=== PATIENT | female | born 1965 | race Caucasian/White ===

== ENCOUNTER 2020-05-29 17:46 | Inpatient (IN) ==
[2020-05-29] MEDS ORDERED: IOPAMIDOL 100 ML BOTTLE IV ONE (17:47)
[2020-05-29] MEDS ORDERED: 0.9 % SODIUM CHLORIDE 1,000 ML IV ONE (18:21)
[2020-05-29] MEDS ORDERED: ONDANSETRON 4 MG/2 ML VIAL IV ONE (18:21)
--- NOTE | 2020-05-29 18:30 | Emergency Department Note ---
HPI General Chief complaint: Cold/Flu Symptoms Stated complaint: dizziness, flu Time Seen by Provider: 05/29/20 18:21 Mode of arrival: ambulatory Limitations: no limitations History of Present Illness HPI Narrative: Narrative: Patient is a 54-year-old female that comes into the emergency department today with complaint of fever, chills, cough, shortness of breath, nausea without vomiting, diarrhea of loose brown stool, body aches, fatigue, and slight sore throat. Patient reports that the symptoms began May 23, 2020. She reports that her mother who she lives with is positive with the coronavirus. Patient reports that her mother is recovering, but she feels that she has likely contracted the coronavirus as well. Her appetite has been decreased. She has been trying to drink plenty of fluids. She came to the emergency department today as she was feeling short of breath more. She has a slight pain in the center of her chest when she coughs. Patient reports that her cough is nonproductive. She has a history of diabetes and reports her blood sugars have been in the 150 range. She reports history of asthma which is been well controlled with occasional albuterol. Patient has taken acetaminophen for her fever, body aches, and sore throat. She reports that her last dose was around 11:00 today. Patient denies any abdominal pains, urinary frequency, urgency, or dysuria. Related Data Previous Rx's Medication Instructions Recorded carvedilol 6.25 mg PO BID #60 tab 09/24/19 Allergies Allergy/AdvReac Type Severity Reaction Status Date / Time hydrocodone Allergy Mild Other Verified 05/29/20 18:51 ondansetron [From Zofran] AdvReac Mild Vomiting Verified 05/29/20 18:52 Review of Systems ROS ROS Narrative: Narrative: Except as noted in the HPI, a 12 - system Review of Systems was found to be negative. Specifically: Constitutional: No chronic fatigue, unexplained weight gain, or weight loss. Eyes: No visual impairment, no pain, watering, discharge, or itching. ENT: No ear or sinus infections. No reoccurring nosebleeds, no chronic nasal congestion. No mouth lesions or dental pain. No dysphagia. Respiratory: No wheezing. See HPI for positives. CV: No cyanosis, palpitations, dizziness, or fainting. GI: No abdominal pain, reflux symptoms, or vomiting. See HPI for positives. Musculoskeletal: No weakness, no joint pain or limitations. Neurologic: No headache, weakness, numbness, dizziness, or seizures. Endocrine: No hot or cold intolerances, excessive sweating, excessive thirst, or frequent urination. Hematologic/lymphatic: No blood disorder. No swollen lymph nodes. Integumentary: No problem with rashes, eczema, changing of skin lesions. No nail abnormalities. Psychiatric: No depression, anxiety, or sleep disorder. [facility] [place] Narrative Patient History Narrative: Narrative: Medical/Surgical/Family History All Active Problems (Updated 05/29/20 @ 21:26 by MARYANN Best) Atypical chest pain (Acute) Costochondritis (Acute) Hypoxia (Acute) Social History Smoking Status: Never smoker Exam Narrative Narrative: Narrative: General Limitations: no limitations General appearance: alert, in no apparent distress and obese Head Head: atraumatic and normocephalic Eye Eye: Present normal appearance and PERRL; Absent scleral icterus ENT ENT: Present normal oropharynx, mucous membranes moist, normal external ear exam and nasal congestion (Very small amount of clear postnasal discharge.) Neck Neck: Present normal inspection, full ROM and trachea midline; Absent tenderness, meningismus, lymphadenopathy and thyromegaly Chest Chest: Present symmetric chest wall rise; Absent tenderness and rash Respiratory Respiratory: Present normal lung sounds bilaterally; Absent respiratory distress, rales/crackles, wheezes, stridor, accessory muscle use and prolonged expiratory phase Cardiovascular Cardiovascular: Present regular rate and normal rhythm; Absent systolic murmur and diastolic murmur Adbominal Abdominal: Present other (Abdomen is soft, obese without tenderness. Normoactive bowel tones x4 quadrants.) Extremities Extremities: Present normal inspection, full ROM and normal capillary refill; Absent tenderness, pedal edema, pretibial edema, calf tenderness, cyanosis and clubbing Back Back: Present normal inspection and full ROM Neurological Neurological: Present alert and oriented X3 Psychiatric Psychiatric: Present normal affect and normal mood Skin Skin: Present warm, dry and normal color Course Course Course Narrative: 1927 -patient's d-dimer is elevated at 0.54. I have ordered CT angio of chest. DuoNeb to be administered as patient does have some hypoxia and currently receiving 2 L of O2. 2119 -CTA chest preliminary report shows no pulmonary embolism there is pulmonary parenchymal findings compatible with or seen with coronavirus infection. Ambulatory trial with patient reveals the oxygen saturations 83 to 88% on room air. I did call and talk with Dr. Pabon today who will come down to the emergency department and see the patient for evaluation in regards to admission to [facility] for hypoxia. Vital Signs Vital signs: Vital Signs Temperature 98.8 F 05/29/20 17:47 Pulse Rate 74 05/29/20 17:47 Respiratory Rate 18 05/29/20 17:47 Blood Pressure 169/78 05/29/20 17:47 Pulse Oximetry (%) 92 05/29/20 17:47 Temperature 99.2 F H 05/29/20 20:01 Pulse Rate 73 05/29/20 22:17 Respiratory Rate 20 05/29/20 19:59 Blood Pressure 146/48 05/29/20 22:17 Pulse Oximetry (%) 92 05/29/20 22:17 MDM MDM Narrative Medical decision making narrative: Narrative: Patient hypoxic and not able to maintain oxygen saturations greater than 90% on room air. Her oxygen saturations had remained around 88% to 92% at rest and with ambulation 83 to 88% on room air. Chest CT angiogram did not show any sign of pulmonary embolism. Findings on the CT scan are consistent with likely findings that are seen with coronavirus infection. Patient has been exposed to her mother who apparently is a known positive case of the novel coronavirus. Patient was tested for the COVID-19 virus which is currently pending at this time. I did consult with hospitalist, Dr. Pabon who will admit patient to [facility] for observation. Lab Data Result diagrams: 05/29/20 18:30 05/29/20 18:30 Labs: Lab Results 05/29/20 05/29/20 05/29/20 Range/Units 18:25 18:25 18:30 WBC (4.50-11.00) K/mcL RBC (3.59-5.38) M/mcL Hgb (11.2-15.7) g/dL Hct (34.1-44.9) % MCV (80.0-100.0) fL MCH (26.0-34.0) pg MCHC (31.0-36.0) g/dL RDW (11.5-14.5) % Plt Count (140-440) K/mcL MPV (7.4-10.4) fL Gran % (38.0-78.0) % Lymph % (Auto) (15.5-49.0) % [place] % (Auto) (1.0-12.0) % Eos % (Auto) (0.0-7.0) % Baso % (Auto) (0.0-2.0) % Gran # (1.80-8.00) K/mcL Lymph # (Auto) (1.50-4.80) K/mcL [place] # (Auto) (0.10-0.90) K/mcL Eos # (Auto) (0.00-0.70) K/mcL Baso # (Auto) (0.00-0.30) K/mcL PT 12.6 (11.9-14.5) sec INR 0.9 (0.9-1.1) D-Dimer (0.00-0.40) ug/ml VBG Lactic Acid (0.5-2.0) mmol/L Sodium (133-145) mmol/L Potassium (3.3-5.1) mmol/L Chloride (96-108) mmol/L Carbon Dioxide (22-30) mmol/L Anion Gap (8-16) BUN (6-20) mg/dl Creatinine (0.6-1.1) mg/dl GFR Calculation Glucose (70-105) mg/dL Calcium (8.6-10.4) mg/dl Total Bilirubin (0.0-1.0) mg/dL AST (0-37) U/l ALT (0-40) U/l Alkaline Phosphatase (39-117) U/L Total Creatine Kinase 66 (24-170) IU/L Troponin T (0-0.03) ng/ml C-Reactive Protein (0.0-0.8) mg/dl Total Protein (5.9-8.4) gm/dL Albumin (3.2-5.2) gm/dL Globulin (2.2-3.7) gm/dL Albumin/Globulin Ratio (1.0-2.3) Procalcitonin 0.11 (<0.10) ng/mL 05/29/20 05/29/20 05/29/20 Range/Units 18:30 18:30 18:30 WBC 5.2 (4.50-11.00) K/mcL RBC 4.33 (3.59-5.38) M/mcL Hgb 13.5 (11.2-15.7) g/dL Hct 40.3 (34.1-44.9) % MCV 93.1 (80.0-100.0) fL MCH 31.2 (26.0-34.0) pg MCHC 33.5 (31.0-36.0) g/dL RDW 13.2 (11.5-14.5) % Plt Count 132 L (140-440) K/mcL MPV 11.1 H (7.4-10.4) fL Gran % 63.1 (38.0-78.0) % Lymph % (Auto) 29.2 (15.5-49.0) % [place] % (Auto) 7.3 (1.0-12.0) % Eos % (Auto) 0.2 (0.0-7.0) % Baso % (Auto) 0.2 (0.0-2.0) % Gran # 3.29 (1.80-8.00) K/mcL Lymph # (Auto) 1.52 (1.50-4.80) K/mcL [place] # (Auto) 0.38 (0.10-0.90) K/mcL Eos # (Auto) 0.01 (0.00-0.70) K/mcL Baso # (Auto) 0.01 (0.00-0.30) K/mcL PT (11.9-14.5) sec INR (0.9-1.1) D-Dimer 0.54 H (0.00-0.40) ug/ml VBG Lactic Acid (0.5-2.0) mmol/L Sodium 137 (133-145) mmol/L Potassium 4.9 (3.3-5.1) mmol/L Chloride 100 (96-108) mmol/L Carbon Dioxide 22 (22-30) mmol/L Anion Gap 15.0 (8-16) BUN 15 (6-20) mg/dl Creatinine 1.1 (0.6-1.1) mg/dl GFR Calculation 56 Glucose 167 H (70-105) mg/dL Calcium 9.8 (8.6-10.4) mg/dl Total Bilirubin 1.0 (0.0-1.0) mg/dL AST 61 H (0-37) U/l ALT 47 H (0-40) U/l Alkaline Phosphatase 157 H (39-117) U/L Total Creatine Kinase (24-170) IU/L Troponin T (0-0.03) ng/ml C-Reactive Protein 2.3 H (0.0-0.8) mg/dl Total Protein 6.9 (5.9-8.4) gm/dL Albumin 3.7 (3.2-5.2) gm/dL Globulin 3.2 (2.2-3.7) gm/dL Albumin/Globulin Ratio 1.2 (1.0-2.3) Procalcitonin (<0.10) ng/mL 05/29/20 05/29/20 Range/Units 18:30 18:30 WBC (4.50-11.00) K/mcL RBC (3.59-5.38) M/mcL Hgb (11.2-15.7) g/dL Hct (34.1-44.9) % MCV (80.0-100.0) fL MCH (26.0-34.0) pg MCHC (31.0-36.0) g/dL RDW (11.5-14.5) % Plt Count (140-440) K/mcL MPV (7.4-10.4) fL Gran % (38.0-78.0) % Lymph % (Auto) (15.5-49.0) % [place] % (Auto) (1.0-12.0) % Eos % (Auto) (0.0-7.0) % Baso % (Auto) (0.0-2.0) % Gran # (1.80-8.00) K/mcL Lymph # (Auto) (1.50-4.80) K/mcL [place] # (Auto) (0.10-0.90) K/mcL Eos # (Auto) (0.00-0.70) K/mcL Baso # (Auto) (0.00-0.30) K/mcL PT (11.9-14.5) sec INR (0.9-1.1) D-Dimer (0.00-0.40) ug/ml VBG Lactic Acid 1.1 (0.5-2.0) mmol/L Sodium (133-145) mmol/L Potassium (3.3-5.1) mmol/L Chloride (96-108) mmol/L Carbon Dioxide (22-30) mmol/L Anion Gap (8-16) BUN (6-20) mg/dl Creatinine (0.6-1.1) mg/dl GFR Calculation Glucose (70-105) mg/dL Calcium (8.6-10.4) mg/dl Total Bilirubin (0.0-1.0) mg/dL AST (0-37) U/l ALT (0-40) U/l Alkaline Phosphatase (39-117) U/L Total Creatine Kinase (24-170) IU/L Troponin T < 0.01 (0-0.03) ng/ml C-Reactive Protein (0.0-0.8) mg/dl Total Protein (5.9-8.4) gm/dL Albumin (3.2-5.2) gm/dL Globulin (2.2-3.7) gm/dL Albumin/Globulin Ratio (1.0-2.3) Procalcitonin (<0.10) ng/mL Discharge Plan Patient/Caregiver Discharge Instructions Pt seen by DROP CLIPPER/PA only: No Clinical Impression: Hypoxia Patient Disposition: Xfer As Outpt/Obs ([facility]) Condition: Fair
[2020-05-29] MEDS ORDERED: ACETAMINOPHEN 1,000 MG/100 ML BOTTLE IV ONE (18:49)
[2020-05-29 19:05] LABS: Basophils # (Auto) 0.01 K/mcL (0.00-0.30); Basophils % (Auto) 0.2 % (0.0-2.0); Eosinophils # (Auto) 0.01 K/mcL (0.00-0.70); Eosinophils % (Auto) 0.2 % (0.0-7.0); Granulocytes % (Auto) 63.1 % (38.0-78.0); Hematocrit 40.3 % (34.1-44.9); Hemoglobin 13.5 g/dL (11.2-15.7); Lymphocytes # (Auto) 1.52 K/mcL (1.50-4.80); Lymphocytes % (Auto) 29.2 % (15.5-49.0); Mean Cell Volume 93.1 fL (80.0-100.0); Mean Corpuscular HGB Conc 33.5 g/dL (31.0-36.0); Mean Platelet Volume 11.1 fL (7.4-10.4); Monocytes # (Auto) 0.38 K/mcL (0.10-0.90); Monocytes % (Auto) 7.3 % (1.0-12.0); RBC 4.33 M/mcL (3.59-5.38); Red Cell Distribution Width 13.2 % (11.5-14.5); WBC 5.2 K/mcL (4.50-11.00)
[2020-05-29 19:06] LABS: Platelet Count 132 K/mcL (140-440)
[2020-05-29] MEDS ORDERED: IPRATROPIUM/ALBUTEROL 3 ML AMPUL.NEB NEB ONE (19:27)
[2020-05-29 19:30] LABS: ALT/SGPT 47 U/l (0-40); AST/SGOT 61 U/l (0-37); Albumin 3.7 gm/dL (3.2-5.2); Albumin/Globulin Ratio 1.2 (1.0-2.3); Alkaline Phosphatase 157 U/L (39-117); Blood Urea Nitrogen 15 mg/dl (6-20); C-Reactive Protein 2.3 mg/dl (0.0-0.8); Calcium 9.8 mg/dl (8.6-10.4); Carbon Dioxide 22 mmol/L (22-30); Chloride 100 mmol/L (96-108); Globulin 3.2 gm/dL (2.2-3.7); Glomerular Filtration Rate 56; Glucose 167 mg/dL (70-105)
[2020-05-29] MEDS ORDERED: REMDESIVIR 200 MG PO ONE (21:38)
[2020-05-29] MEDS ORDERED: REMDESIVIR 200 MG in 0.9 % SODIUM CHLORIDE 250 ML IV ONE (22:00)
--- NOTE | 2020-05-29 22:08 | Internal Med History&Physical ---
HPI History of Present Illness Patient information: Note initiated : 05/29/20 at 9:58 pm Service Date, if different from initiated Date: [] Patient: Fiona Chinchilla a 54 y/o F admitted on for dizziness, flu. Chief Complaint: [] History of present illness: Ms. Chinchilla is a 54 year old F Presents to the ED with worsening shortness of breath and cough. Patient lives with her mother was diagnosed with COVID-19 on the . Patient started developing symptoms on the fourth described as myalgias weakness nausea no vomiting diarrhea shortness of breath cough, fatigue. His symptoms continue to worsen especially her cough. Her cough is dry but her shortness of breath worsened as her cough worsened point where she was so short of breath she felt he needed to come in the ED. In the ED she was saturating at 88% on room air. She was given a breathing treatment and later on ambulated on room air but dropped to the mid 80s. Patient with good sats on 2 L oxygen. Managing with infiltrates bilaterally. He has a history of hypertension diabetes asthma, and obesity. Mother is convalescing at home. Lab abnormalities include mild transaminitis. Unremarkable troponin. Mildly elevated C-reactive protein. Mildly elevated d-dimer. Low procalcitonin. Mild thrombocytopenia Review of Systems: denies headache/fever/chills/nausea/vomiting/chest or abdominal pain/cough/dyspnea/diarrhea. Otherwise see above. PFSH PFSH All Active Problems (Updated 05/29/20 @ 21:26 by MARYANN Best) Atypical chest pain (Acute) Costochondritis (Acute) Hypoxia (Acute) Social History (Updated 05/29/20 @ 22:03 by Enoch Pabon DO) smoking status: Never smoker additional history: Past medical history: Diabetes asthma hypertension obesity anxiety Past surgical history: Hysterectomy family: Father with prostate cancer Social history: Patient denies tobacco or alcohol lives with her mother and foot surgery MEDS/ALLERGIES Home Medications and Allergies Home Medications Medication Instructions Recorded Confirmed Type carvedilol 6.25 mg PO BID #60 tab 09/24/19 05/29/20 Rx Allergies Allergy/AdvReac Type Severity Reaction Status Date / Time hydrocodone Allergy Mild Other Verified 05/29/20 18:51 ondansetron [From Zofran] AdvReac Mild Vomiting Verified 05/29/20 18:52 EXAM Constitutional Vitals: Temp Pulse Resp BP Pulse Ox 99.2 F H 75 20 160/56 94 05/29/20 20:01 05/29/20 21:29 05/29/20 19:59 05/29/20 21:47 05/29/20 21:29 Exam: General: Alert, Awake, No acute Distress, obese Eyes/N/T: EOMI, PERRL, Head/Neck: neck supple, normocephalic atraumatic CV: RRR, No murmurs, normal s1/s2 Pulm: Clear b/l, no wheezing/rhonchi/rales Abd: soft, nontender, +BS x4 Ext: no clubbing/cyanosis/edema Neuro: Alert, no focal deficits, moves all extremities, CN 2-12 grossly intact, symmetrical strength b/l upper/lower, sensations intact b/l upper/lower Skin: warm/dry DATA Data Completed and Pending Labs: Labs from last 24 hours 05/29/20 05/29/20 05/29/20 18:46 18:30 18:30 WBC RBC Hgb Hct MCV MCH MCHC RDW Plt Count MPV Gran % Lymph % (Auto) [place] % (Auto) Eos % (Auto) Baso % (Auto) Gran # Lymph # (Auto) [place] # (Auto) Eos # (Auto) Baso # (Auto) PT INR D-Dimer VBG Lactic Acid 1.1 Sodium Potassium Chloride Carbon Dioxide Anion Gap BUN Creatinine GFR Calculation Glucose Calcium Total Bilirubin AST ALT Alkaline Phosphatase Total Creatine Kinase Troponin T < 0.01 C-Reactive Protein Total Protein Albumin Globulin Albumin/Globulin Ratio Procalcitonin SARS-CoV-2 (PCR) Pending 05/29/20 05/29/20 05/29/20 18:30 18:30 18:30 WBC 5.2 RBC 4.33 Hgb 13.5 Hct 40.3 MCV 93.1 MCH 31.2 MCHC 33.5 RDW 13.2 Plt Count 132 L MPV 11.1 H Gran % 63.1 Lymph % (Auto) 29.2 [place] % (Auto) 7.3 Eos % (Auto) 0.2 Baso % (Auto) 0.2 Gran # 3.29 Lymph # (Auto) 1.52 [place] # (Auto) 0.38 Eos # (Auto) 0.01 Baso # (Auto) 0.01 PT INR D-Dimer 0.54 H VBG Lactic Acid Sodium 137 Potassium 4.9 Chloride 100 Carbon Dioxide 22 Anion Gap 15.0 BUN 15 Creatinine 1.1 GFR Calculation 56 Glucose 167 H Calcium 9.8 Total Bilirubin 1.0 AST 61 H ALT 47 H Alkaline Phosphatase 157 H Total Creatine Kinase Troponin T C-Reactive Protein 2.3 H Total Protein 6.9 Albumin 3.7 Globulin 3.2 Albumin/Globulin Ratio 1.2 Procalcitonin SARS-CoV-2 (PCR) 05/29/20 05/29/20 05/29/20 18:30 18:25 18:25 WBC RBC Hgb Hct MCV MCH MCHC RDW Plt Count MPV Gran % Lymph % (Auto) [place] % (Auto) Eos % (Auto) Baso % (Auto) Gran # Lymph # (Auto) [place] # (Auto) Eos # (Auto) Baso # (Auto) PT Pending INR Pending D-Dimer VBG Lactic Acid Sodium Potassium Chloride Carbon Dioxide Anion Gap BUN Creatinine GFR Calculation Glucose Calcium Total Bilirubin AST ALT Alkaline Phosphatase Total Creatine Kinase Pending Troponin T C-Reactive Protein Total Protein Albumin Globulin Albumin/Globulin Ratio Procalcitonin 0.11 SARS-CoV-2 (PCR) A/P Narrative A/P Narrative: A: *COVID-19 highly suspected: in-house family member positive on , pt symptoms started 05/27. -viral prodrome including GI symptoms -b/l infiltrates on imaging, procalcitonin low and no leukocytosis, -Febrile *Acute hypoxic respiratory failure: 2/2 above *HTN: On BB/ARB *DM: *Obesity: *h/o Asthma: *Generalized anxiety disorder: * P: -Remdesivir & low-dose dexamethasone -supp o2 -MDI prn -Continuous pulse ox -Clarify and update home medication list - -ppx: Lovenox Full code Time Spent With Patient Time: Total time spent is greater than 50% in coordination of care (as documented) at patient's floor/unit and/or counseling patient:
[2020-05-29 22:37] LABS: INR 0.9 (0.9-1.1); Prothrombin Time 12.6 sec (11.9-14.5)
[2020-05-29] MEDS ORDERED: BENZONATATE 100 MG CAPSULE PO PRN (22:50)
[2020-05-29] MEDS ORDERED: SENNOSIDES 1 TABLET PO PRN (22:50)
[2020-05-29] MEDS ORDERED: DEXTROSE 50% 50 ML VIAL IV PRN (22:50)
[2020-05-29] MEDS ORDERED: ONDANSETRON 4 MG/2 ML VIAL IV PRN (22:50)
[2020-05-29] MEDS ORDERED: POLYETHYLENE GLYCOL 3350 17 GM PACKET PO PRN (22:50)
[2020-05-29] MEDS ORDERED: DEXTROSE 31 GM ORAL.SUSP PO PRN (22:50)
[2020-05-29] MEDS ORDERED: POTASSIUM CHLORIDE 20 MEQ TABLET PO PRN ×2 (22:50)
[2020-05-29] MEDS ORDERED: MAGNESIUM SULFATE 2 GM/50 ML BAG IV PRN (22:50)
[2020-05-29] MEDS ORDERED: POTASSIUM CHLORIDE 40 MEQ in DEXTROSE 5% IN WATER 500 ML IV PRN (22:50)
[2020-05-29] MEDS ORDERED: ACETAMINOPHEN 325 MG TABLET PO PRN (22:50)
[2020-05-29] MEDS: DEXAMETHASONE 4 MG TABLET PO SCH (23:13)
[2020-05-29] MEDS: 0.9 % SODIUM CHLORIDE 10 ML SYRINGE IV SCH (23:14)
[2020-05-29] MEDS ORDERED: INSULIN LISPRO 1 UNIT/0.01 ML UNIT SQ ONE (23:50)
--- NOTE | 2020-05-30 05:59 | XRay Report ---
CLINICAL INFORMATION: SOB COMPARISON: 09/24/2019 FINDINGS: The heart is borderline enlarged, but unchanged. Mediastinum and pulmonary vessels are normal. Minor bibasilar atelectasis noted. No alexis infiltrates or effusions. IMPRESSION: Borderline stable cardiomegaly and minor bibasilar atelectasis. Interpreted and Authenticated by: Nate Shelton 05/30/20
--- NOTE | 2020-05-30 06:47 | Cat Scan Report ---
CLINICAL INFORMATION: Dyspnea and elevated d-dimer COMPARISON: None. TECHNIQUE: 80ml of Isovue-370 were injected intravenously. Using SmartPrep to maximize pulmonary artery opacification, .625mm helical slices were obtained from the lung apices through the lung bases. Following reconstruction, 2.5 mm sagittal, coronal, and axial reformations were processed. The exam was reviewed at mediastinal, lung, and bone windows. The exam was performed using radiation dose optimization techniques including, but not limited to, automated exposure control, adjustment of the mA and/or kV according to patient size and use of iterative reconstruction technique. FINDINGS: Mediastinal windows show the pulmonary arteries are well-opacified and normal in diameter. No evidence of embolus. The thoracic aorta also normal in diameter without appreciable atherosclerotic plaque. The heart is normal in size configuration. No plaque appreciated in the visualized coronary arteries. A few borderline enlarged lymph nodes present in the AP window left hilum and left lower paratracheal region. These are less than a in number ranging up to 16 mm. There are almost certainly benign reactive lymph nodes. The esophagus is grossly normal. Pulmonary parenchymal windows show scattered moderate sized groundglass infiltrates, generally in a peribronchial distribution, throughout both upper right middle and lower lobes. Infiltrates are slightly larger and more numerous in the upper lobes. There are no effusions. Bones and soft tissues are normal. Images of the superior abdomen show marked fatty infiltration the liver IMPRESSION: 1. No evidence of pulmonary embolus. 2. Multifocal moderate groundglass infiltrates throughout both lungs. In the acute setting, the differential diagnosis includes infection including, but not limited to, Covid pneumonia, atypical ARDS and hypersensitivity pneumonitis. 3. Marked fatty change within the liver. Please correlate with LFTs. In the absence of hepatitis virus infection and known hepatotoxins, such as alcohol, BROOKS should be excluded Interpreted and Authenticated by: Nate Shelton 05/30/20
[2020-05-30 07:04] LABS: Creatine Kinase 183 IU/L (24-170)
[2020-05-30 08:38] LABS: Hematocrit 39.8 % (34.1-44.9); Hemoglobin 13.2 g/dL (11.2-15.7); Mean Cell Volume 93.6 fL (80.0-100.0); Mean Corpuscular HGB Conc 33.2 g/dL (31.0-36.0); Mean Platelet Volume 11.3 fL (7.4-10.4); RBC 4.25 M/mcL (3.59-5.38); Red Cell Distribution Width 13.3 % (11.5-14.5); WBC 4.9 K/mcL (4.50-11.00)
[2020-05-30 08:40] LABS: Platelet Count 131 K/mcL (140-440)
[2020-05-30 08:48] LABS: ALT/SGPT 43 U/l (0-40); AST/SGOT 54 U/l (0-37); Albumin 3.7 gm/dL (3.2-5.2); Albumin/Globulin Ratio 1.2 (1.0-2.3); Alkaline Phosphatase 147 U/L (39-117); Bilirubin,Direct 0.2 mg/dL (0.0-0.3); Bilirubin,Total 0.8 mg/dL (0.0-1.0); Blood Urea Nitrogen 17 mg/dl (6-20); C-Reactive Protein 3.6 mg/dl (0.0-0.8); Calcium 9.3 mg/dl (8.6-10.4); Carbon Dioxide 20 mmol/L (22-30); Chloride 102 mmol/L (96-108); Globulin 3.2 gm/dL (2.2-3.7); Glomerular Filtration Rate 56; Glucose 352 mg/dL (70-105); Lactate Dehydrogenase 279 U/L (94-250); Triglycerides 155 mg/dl (<150); Uric Acid 7.5 mg/dL (2.5-8.0)
[2020-05-30 08:49] LABS: Phosphorous 2.2 mg/dL (2.7-4.5)
--- NOTE | 2020-05-30 08:51 | Internal Med Progress Note ---
SUBJECTIVE Subjective Patient information: Note initiated : 05/30/20 at 8:48 am Service Date, if different from initiated Date: [] Patient: Fiona Chinchilla a 54 y/o F admitted on 05/29/20 for dizziness, flu. Chief Complaint: [] Interval history: History of present illness: Ms. Chinchilla is a 54 year old F Presents to the ED with worsening shortness of breath and cough. Patient lives with her mother was diagnosed with COVID-19 on the . Patient started developing symptoms on the fourth described as myalgias weakness nausea no vomiting diarrhea shortness of breath cough, fatigue. His symptoms continue to worsen especially her cough. Her cough is dry but her shortness of breath worsened as her cough worsened point where she was so short of breath she felt he needed to come in the ED. In the ED she was saturating at 88% on room air. She was given a breathing treatment and later on ambulated on room air but dropped to the mid 80s. Patient with good sats on 2 L oxygen. Managing with infiltrates bilaterally. He has a history of hypertension diabetes asthma, and obesity. Mother is convalescing at home. Lab abnormalities include mild transaminitis. Unremarkable troponin. Mildly elevated C-reactive protein. Mildly elevated d-dimer. Low procalcitonin. Mild thrombocytopenia / Patient feeling better today. Coughing less and shortness of breath improving. Still on 2 L nasal cannula and will decrease to 1 L and see if she does. Review of Systems: denies headache/fever/chills/nausea/vomiting/chest or abdominal pain/diarrhea. Otherwise see above. Constitutional Vitals: Vital Signs Temp Pulse Resp BP Pulse Ox 99.1 F H 84 22 145/74 92 05/30/20 06:52 05/30/20 06:52 05/30/20 06:52 05/30/20 06:52 05/30/20 06:52 Period Temp Pulse Resp BP Sys/Rangel Pulse Ox Last 24 Hr 98.8 F-103.1 F 68-84 16-24 129-197/48-95 91-100 Intake and Output 05/29/20 05/30/20 05/30/20 21:59 05:59 13:59 Intake Total 1100 250 Output Total 975 650 Balance 1100 -725 -650 Weight 138.346 kg 127.55 kg Intake & Output: Intake & Output 05/29/20 05/30/20 05/30/20 21:59 05:59 13:59 Intake Total 1100 250 Output Total 975 650 Balance 1100 -725 -650 Weight 138.346 kg 127.55 kg Intake: IV 1100 250 Sodium Chloride 0.9% 1,000 ml @ 1000 Wide Open IV BOLUS ONE Rx#: [id number] Remdesivir 200 mg In Sodium 250 Chloride 0.9% 250 ml @ 500 mls/ hr IV ONCE ONE Rx#:[id number] Oral 0 Output: Void Amount 975 650 Other: Urine Color Bright Yellow Exam: General: Alert, Awake, No acute Distress, obese Eyes/N/T: EOMI, Head/Neck: neck supple, CV: RRR, No murmurs, Pulm: Clear b/l, no wheezing/rhonchi/rales Abd: soft, nontender, +BS x4 Ext: no clubbing/cyanosis/edema Neuro: Alert, no focal deficits, moves all extremities, Skin: warm/dry OBJ DATA Labs CBC & Chem 7: 05/30/20 05:38 05/30/20 05:38 Labs: Abnormal Lab Results 05/30/20 05/30/20 05/29/20 05:38 05:38 18:30 Plt Count 131 L MPV 11.3 H D-Dimer Glucose 167 H Ferritin AST 61 H ALT 47 H Alkaline Phosphatase 157 H Total Creatine Kinase 183 H C-Reactive Protein 2.3 H 05/29/20 05/29/20 05/29/20 18:30 18:30 18:25 Plt Count 132 L MPV 11.1 H D-Dimer 0.54 H Glucose Ferritin 487.9 H AST ALT Alkaline Phosphatase Total Creatine Kinase C-Reactive Protein Meds: Medications Acetaminophen (Tylenol) 650 mg PO Q6HP PRN PRN Reason: PAIN/FEVER > 101 Albuterol/Ipratropium (Combivent) 2 puff INH QID [facility] Benzonatate (Tessalon) 200 mg PO TIDP PRN PRN Reason: Cough Last Admin: 05/30/20 02:37 Dose: 200 mg Documented by: Carvedilol (Coreg) 6.25 mg PO BIDCC [facility] Dexamethasone (Decadron) 6 mg PO DAILY [facility] Last Admin: 05/29/20 23:13 Dose: 6 mg Documented by: Dextrose (Dextrose 50%) 0 ml IV UD PRN PRN Reason: Hypoglycemia Diagnostic Test (Pha) (Accu-Chek) 1 each FS ACHS [facility] Last Admin: 05/29/20 23:35 Dose: 1 each Documented by: Enoxaparin Sodium (Lovenox) 40 mg SQ DAILY [facility] Glucose (Insta-Glucose) 15 gm PO PRN PRN PRN Reason: Hypoglycemia Potassium Chloride 40 meq/ (Dextrose) 520 mls @ 130 mls/hr IV UD PRN PRN Reason: Potassium < 3 Magnesium Sulfate (Magnesium Sulfate) 2 gm in 50 mls @ 50 mls/hr IV UD PRN PRN Reason: Magnesium </= 1.6 REMDESIVIR 100 mg/ Sodium (Chloride) 250 mls @ 500 mls/hr IV Q24H [facility] Stop: 06/02/20 13:29 Insulin Human Lispro (Humalog) 0 unit SQ [facility]; Protocol Ondansetron HCl (Zofran) 4 mg IV Q4HP PRN PRN Reason: Nausea And Vomiting Polyethylene Glycol (Miralax) 17 gm PO DAILYP PRN PRN Reason: Constipation Potassium Chloride (Kdur) 40 meq PO UD PRN PRN Reason: Potssium is 3-3.5 Potassium Chloride (Kdur) 40 meq PO UD PRN PRN Reason: Potassium < 3 Senna (Senokot) 2 tab PO DAILYP PRN PRN Reason: Constipation Sodium Chloride (Saline Flush) 10 ml IV Q8 [facility] Last Admin: 05/29/20 23:14 Dose: 10 ml Documented by: A/P Narrative A/P Narrative: A: *COVID-19 highly suspected: in-house family member positive on , pt symptoms started 05/27. -viral prodrome including GI symptoms -b/l infiltrates on imaging, procalcitonin low and no leukocytosis, -afebrile o/n *Acute hypoxic respiratory failure: 2/2 above -on 2L NC *HTN: On BB/ARB *DM: *Obesity: *h/o Asthma: *Generalized anxiety disorder: *mild hyperkalemia: P: -Remdesivir & low-dose dexamethasone -supp o2 and wean, IS -MDI prn -Continuous pulse ox -home basal insulin and SSI -hold ARB for hyperkalemia for now -ppx: Lovenox Full code Time Spent With Patient Time: Total time spent is greater than 50% in coordination of care (as documented) at patient's floor/unit and/or counseling patient: QUALITY VTE Deep Vein Thrombosis/Pulmonary Embolism Present on Admission: No
[2020-05-30] MEDS ORDERED: hydrALAZINE 20 MG/ML VIAL IV PRN ×2 (08:52→21:47)
[2020-05-30 08:54] LABS: Ferritin 471.6 ng/ml (13-150)
[2020-05-30] MEDS ORDERED: ENOXAPARIN 40 MG/0.4 ML SYRINGE SQ SCH (09:00)
[2020-05-30] MEDS ORDERED: ESCITALOPRAM 10 MG TABLET PO SCH (09:00)
[2020-05-30] MEDS ORDERED: REMDESIVIR 100 MG IV SCH (09:00)
[2020-05-30] MEDS ORDERED: NON FORMULARY MEDICATION 1 DOSE MISCELL (Losartan 100 MG) PO SCH (09:00)
[2020-05-30] MEDS ORDERED: busPIRone 5 MG TABLET PO SCH (09:00)
[2020-05-30] MEDS: 0.9 % SODIUM CHLORIDE 10 ML SYRINGE IV SCH ×4 (09:12→22:33)
[2020-05-30] MEDS: INSULIN LISPRO 1 UNIT/0.01 ML UNIT SQ SCH ×4 (09:12→22:57)
[2020-05-30] MEDS: CARVEDILOL 6.25 MG TABLET PO SCH ×2 (09:13→18:03)
[2020-05-30] MEDS: DEXAMETHASONE 4 MG TABLET PO SCH (09:13)
[2020-05-30] MEDS: IPRATROPIUM/ALBUTEROL SULFATE 1 PUFF INHALER INH SCH ×4 (09:14→20:59)
[2020-05-30 10:00] LABS: Hemoglobin A1C 7.8 % HGB (4.0-6.0)
[2020-05-30 11:40] LABS: Band Neutrophils % 2 % (0-10); Lymphocytes % 24 % (15-49); Metamyelocytes % 2 % (0-0); Monocytes % (Manual) 5 % (1-12); Myelocytes % 2 % (0-0); Platelet Estimate DECREASED (NORMAL); RBC Morphology NORMAL (NORMAL); Segmented Neutrophils % 65 % (38-78)
[2020-05-30] MEDS: SODIUM BICARBONATE 650 MG TABLET PO SCH ×2 (12:28→21:00)
[2020-05-30] MEDS ORDERED: REMDESIVIR 100 MG in 0.9 % SODIUM CHLORIDE 250 ML IV SCH (13:00)
[2020-05-30] MEDS ORDERED: INSULIN GLARGINE, HUMAN 1 UNIT/0.01 ML SQ SCH (21:00)
[2020-05-30] MEDS ORDERED: MAGNESIUM SULFATE 2 GM/50 ML BAG IV PRN (21:47)
[2020-05-30] MEDS ORDERED: POLYETHYLENE GLYCOL 3350 17 GM PACKET PO PRN (21:47)
[2020-05-30] MEDS ORDERED: DEXTROSE 50% 50 ML VIAL IV PRN (21:47)
[2020-05-30] MEDS ORDERED: ACETAMINOPHEN 325 MG TABLET PO PRN (21:47)
[2020-05-30] MEDS ORDERED: BENZONATATE 100 MG CAPSULE PO PRN (21:47)
[2020-05-30] MEDS ORDERED: POTASSIUM CHLORIDE 40 MEQ in DEXTROSE 5% IN WATER 500 ML IV PRN (21:47)
[2020-05-30] MEDS ORDERED: POTASSIUM CHLORIDE 20 MEQ TABLET PO PRN ×2 (21:47)
[2020-05-30] MEDS ORDERED: ONDANSETRON 4 MG/2 ML VIAL IV PRN (21:47)
[2020-05-30] MEDS ORDERED: SENNOSIDES 1 TABLET PO PRN (21:47)
[2020-05-30] MEDS ORDERED: DEXTROSE 31 GM ORAL.SUSP PO PRN (21:47)
[2020-05-30] MEDS ORDERED: INSULIN REGULAR, HUMAN 50 UNIT in 0.9 % SODIUM CHLORIDE 99.5 ML IV SCH (22:00)
[2020-05-30] MEDS ORDERED: INSULIN LISPRO 1 UNIT/0.01 ML UNIT SQ ONE (22:14)
[2020-05-30] MEDS ORDERED: INSULIN REGULAR, HUMAN 1 UNIT/0.01 ML UNIT ONE (22:15)
[2020-05-30] MEDS: INSULIN REGULAR, HUMAN 50 UNIT in 0.9 % SODIUM CHLORIDE 99.5 ML IV SCH (22:35)
[2020-05-31] MEDS ORDERED: INSULIN REGULAR, HUMAN 1 UNIT/0.01 ML UNIT ONE ×2 (00:08→02:06)
[2020-05-31] MEDS: 0.9 % SODIUM CHLORIDE 10 ML SYRINGE IV SCH ×5 (06:09→20:12)
[2020-05-31 07:02] LABS: Hematocrit 37.9 % (34.1-44.9); Hemoglobin 12.7 g/dL (11.2-15.7); Mean Cell Volume 92.7 fL (80.0-100.0); Mean Corpuscular HGB Conc 33.5 g/dL (31.0-36.0); Mean Platelet Volume 11.6 fL (7.4-10.4); Platelet Count 158 K/mcL (140-440); RBC 4.09 M/mcL (3.59-5.38); Red Cell Distribution Width 13.2 % (11.5-14.5); WBC 7.6 K/mcL (4.50-11.00)
[2020-05-31] MEDS: INSULIN REGULAR, HUMAN 50 UNIT in 0.9 % SODIUM CHLORIDE 99.5 ML IV SCH (07:02)
[2020-05-31] MEDS: INSULIN LISPRO 1 UNIT/0.01 ML UNIT SQ SCH ×8 (07:09→20:11)
[2020-05-31] MEDS ORDERED: ENALAPRILAT 1.25 MG/ML VIAL IV PRN (07:37)
--- NOTE | 2020-05-31 07:38 | Internal Med Progress Note ---
SUBJECTIVE Subjective Patient information: Note initiated : 05/31/20 at 7:35 am Service Date, if different from initiated Date: [] Patient: Fiona Chinchilla a 54 y/o F admitted on 05/29/20 for dizziness, flu. Chief Complaint: [] Interval history: History of present illness: Ms. Chinchilla is a 54 year old F Presents to the ED with worsening shortness of breath and cough. Patient lives with her mother was diagnosed with COVID-19 on the . Patient started developing symptoms on the fourth described as myalgias weakness nausea no vomiting diarrhea shortness of breath cough, fatigue. His symptoms continue to worsen especially her cough. Her cough is dry but her shortness of breath worsened as her cough worsened point where she was so short of breath she felt he needed to come in the ED. In the ED she was saturating at 88% on room air. She was given a breathing treatment and later on ambulated on room air but dropped to the mid 80s. Patient with good sats on 2 L oxygen. Managing with infiltrates bilaterally. He has a history of hypertension diabetes asthma, and obesity. Mother is convalescing at home. Lab abnormalities include mild transaminitis. Unremarkable troponin. Mildly elevated C-reactive protein. Mildly elevated d-dimer. Low procalcitonin. Mild thrombocytopenia 05/30 Patient feeling better today. Coughing less and shortness of breath improving. Still on 2 L nasal cannula and will decrease to 1 L and see if she does. 05/31 Feeling better today. Minimal cough. Breathing better. Hypoglycemia overnight and placed on insulin drip. Clarify at home insulin and she does take 50 units 3 times a day with meals as well 65 units long-acting. Review of Systems: denies headache/fever/chills/nausea/vomiting/chest or abdominal pain/diarrhea. Otherwise see above. Constitutional Vitals: Vital Signs Temp Pulse Resp BP Pulse Ox 98.4 F 50 L 22 119/45 97 05/31/20 04:07 05/31/20 07:04 05/31/20 06:02 05/31/20 06:02 05/31/20 07:04 Period Temp Pulse Resp BP Sys/Rangel Pulse Ox Last 24 Hr 98.2 F-99.0 F 43-64 12-24 119-185/45-81 91-97 Intake and Output 05/30/20 05/31/2005/31/20 21:59 05:59 13:59 Intake Total 800 870 281 Output Total 800 1500 Balance 0 -630 281 Weight 127.868 kg Intake & Output: Intake & Output 05/30/20 05/31/20 05/31/20 21:59 05:59 13:59 Intake Total 800 870 281 Output Total 800 1500 Balance 0 -630 281 Weight 127.868 kg Intake: IV 70 281 HumuLIN R 50 UNIT In Sodium 70 31 Chloride 0.9% 99.5 ml @ Per Protocol IV DUR [facility] Rx#: [id number] Remdesivir 100 mg In Sodium 250 Chloride 0.9% 250 ml @ 500 mls/ hr IV Q24H [facility] Rx#:[id number] Oral 800 800 Output: Void Amount 800 1500 Other: Meal Dinner Percent of Meal Consumed 100% Feeding Ability Independent Urine Appearance Clear Urine Color Dark Yellow Urine Odor Normal Exam: General: Alert, Awake, No acute Distress, obese Eyes/N/T: EOMI, Head/Neck: neck supple, CV: RRR, No murmurs, Pulm: Clear b/l, no wheezing/rhonchi/rales Abd: soft, nontender, +BS x4 Ext: no clubbing/cyanosis/edema Neuro: Alert, no focal deficits, moves all extremities, Skin: warm/dry OBJ DATA Labs CBC & Chem 7: 05/31/20 05:15 05/31/20 05:15 Labs: Abnormal Lab Results 05/31/20 05/30/20 05/30/20 05:15 05:38 05:38 Plt Count MPV 11.6 H Metamyelocytes % Myelocytes % D-Dimer Potassium 5.4 H Carbon Dioxide 20 L Glucose 352 H Hemoglobin A1c 7.8 H Phosphorus 2.2 L Ferritin 471.6 H GGT 305 H AST 54 H ALT 43 H Alkaline Phosphatase 147 H Lactate Dehydrogenase 279 H Total Creatine Kinase C-Reactive Protein 3.6 H Triglycerides 155 H 05/30/20 05/30/20 05/29/20 05:38 05:38 18:30 Plt Count 131 L MPV 11.3 H Metamyelocytes % 2 H Myelocytes % 2 H D-Dimer Potassium Carbon Dioxide Glucose 167 H Hemoglobin A1c Phosphorus Ferritin GGT AST 61 H ALT 47 H Alkaline Phosphatase 157 H Lactate Dehydrogenase Total Creatine Kinase 183 H C-Reactive Protein 2.3 H Triglycerides 05/29/20 05/29/20 05/29/20 18:30 18:30 18:25 Plt Count 132 L MPV 11.1 H Metamyelocytes % Myelocytes % D-Dimer 0.54 H Potassium Carbon Dioxide Glucose Hemoglobin A1c Phosphorus Ferritin 487.9 H GGT AST ALT Alkaline Phosphatase Lactate Dehydrogenase Total Creatine Kinase C-Reactive Protein Triglycerides Meds: Medications Acetaminophen (Tylenol) 650 mg PO Q6HP PRN PRN Reason: PAIN/FEVER > 101 Albuterol/Ipratropium (Combivent) 2 puff INH QID [facility] Benzonatate (Tessalon) 200 mg PO TIDP PRN PRN Reason: Cough Buspirone HCl (Buspar) 10 mg PO DAILY [facility] Carvedilol (Coreg) 6.25 mg PO BIDCC [facility] Dexamethasone (Decadron) 6 mg PO DAILY [facility] Dextrose (Dextrose 50%) 0 ml IV UD PRN PRN Reason: Hypoglycemia Diagnostic Test (Pha) (Accu-Chek) 1 each FS ACHS [facility] Last Admin: 05/31/20 07:11 Dose: Not Given Documented by: Diagnostic Test (Pha) (Accu-Chek) 1 each FS Q1 [facility] Last Admin: 05/31/20 07:05 Dose: 1 each Documented by: Enoxaparin Sodium (Lovenox) 40 mg SQ DAILY [facility] Escitalopram Oxalate (Lexapro) 10 mg PO DAILY [facility] Glucose (Insta-Glucose) 15 gm PO PRN PRN PRN Reason: Hypoglycemia Hydralazine HCl (Apresoline) 0 mg IV Q2HP PRN PRN Reason: Hypertension Magnesium Sulfate (Magnesium Sulfate) 2 gm in 50 mls @ 50 mls/hr IV UD PRN PRN Reason: Magnesium </= 1.6 REMDESIVIR 100 mg/ Sodium (Chloride) 250 mls @ 500 mls/hr IV Q24H [facility] Stop: 06/02/20 09:29 Potassium Chloride 40 meq/ (Dextrose) 520 mls @ 130 mls/hr IV UD PRN PRN Reason: Potassium < 3 Insulin Human Regular 50 unit/ (Sodium Chloride) 100 mls @ 0 mls/hr IV DUR [facility]; Protocol Last Titration: 05/31/20 07:05 Dose: 11 unit/h, 22 mls/hr Documented by: Insulin Glargine (Lantus) 65 unit SQ HS [facility] Insulin Human Lispro (Humalog) 50 unit SQ TIDAC [facility] Insulin Human Lispro (Humalog) 0 unit SQ ACHS [facility]; Protocol Last Admin: 05/31/20 07:09 Dose: Not Given Documented by: Ondansetron HCl (Zofran) 4 mg IV Q4HP PRN PRN Reason: Nausea And Vomiting Patient Own Medication () 1 dose PO DAILY [facility] Polyethylene Glycol (Miralax) 17 gm PO DAILYP PRN PRN Reason: Constipation Potassium Chloride (Kdur) 40 meq PO UD PRN PRN Reason: Potssium is 3-3.5 Potassium Chloride (Kdur) 40 meq PO UD PRN PRN Reason: Potassium < 3 Senna (Senokot) 2 tab PO DAILYP PRN PRN Reason: Constipation Sodium Chloride (Saline Flush) 10 ml IV Q8 [facility] Last Admin: 05/31/20 06:09 Dose: Not Given Documented by: A/P Narrative A/P Narrative: A: *COVID-19 highly suspected: in-house family member positive on , pt symptoms started 05/27. -viral prodrome including GI symptoms -b/l infiltrates on imaging, procalcitonin low and no leukocytosis, -afebrile o/n *Acute hypoxic respiratory failure: 2/2 above -now on 0-1L NC *HTN: On BB/ARB *DM with Hyperglycemia: *Obesity: *h/o Asthma: *Generalized anxiety disorder: *mild hyperkalemia: *Bradycardia: on two BB's P: -Remdesivir & low-dose dexamethasone -supp o2 and wean, IS -MDI prn -Continuous pulse ox -insulin gtt o/n, then cont home basal insulin and SSI -hold ARB for hyperkalemia for now -on coreg(decrease)/nebivolol -ppx: Lovenox Full code Time Spent With Patient Time: Total time spent is greater than 50% in coordination of care (as documented) at patient's floor/unit and/or counseling patient: QUALITY VTE Deep Vein Thrombosis/Pulmonary Embolism Present on Admission: No
[2020-05-31] MEDS ORDERED: CARVEDILOL 6.25 MG TABLET PO SCH (08:00)
[2020-05-31 08:04] LABS: ALT/SGPT 42 U/l (0-40); AST/SGOT 45 U/l (0-37); Albumin 3.6 gm/dL (3.2-5.2); Albumin/Globulin Ratio 1.2 (1.0-2.3); Alkaline Phosphatase 128 U/L (39-117); Bilirubin,Total 0.6 mg/dL (0.0-1.0); Calcium 9.6 mg/dl (8.6-10.4); Carbon Dioxide 21 mmol/L (22-30); Chloride 104 mmol/L (96-108); Globulin 2.9 gm/dL (2.2-3.7); Glomerular Filtration Rate 63; Glucose 318 mg/dL (70-105); Lactate Dehydrogenase 261 U/L (94-250); Triglycerides 172 mg/dl (<150); Uric Acid 6.9 mg/dL (2.5-8.0)
[2020-05-31 08:06] LABS: Creatine Kinase 156 IU/L (24-170)
[2020-05-31 08:09] LABS: Bilirubin,Direct < 0.2 mg/dL (0.0-0.3); Blood Urea Nitrogen 23 mg/dl (6-20); Phosphorous 1.9 mg/dL (2.7-4.5)
[2020-05-31] MEDS ORDERED: NEUTRA PHOS 1 PACKET PO ONE (08:24)
[2020-05-31] MEDS: CARVEDILOL 6.25 MG TABLET PO SCH (08:30)
[2020-05-31] MEDS: CARVEDILOL 3.125 MG TABLET PO SCH ×2 (08:33→17:29)
[2020-05-31] MEDS: busPIRone 5 MG TABLET PO SCH (08:34)
[2020-05-31] MEDS: ESCITALOPRAM 10 MG TABLET PO SCH (08:34)
[2020-05-31] MEDS: DEXAMETHASONE 4 MG TABLET PO SCH (08:35)
[2020-05-31] MEDS: ENOXAPARIN 40 MG/0.4 ML SYRINGE SQ SCH (08:37)
[2020-05-31 08:53] LABS: Band Neutrophils % 3 % (0-10); Eosinophils % (Manual) 1 % (0-7); Lymphocytes % 24 % (15-49); Monocytes % (Manual) 10 % (1-12); Platelet Estimate NORMAL (NORMAL); RBC Morphology NORMAL (NORMAL); Reactive Lymphocytes 2 % (0-2); Segmented Neutrophils % 60 % (38-78)
[2020-05-31] MEDS ORDERED: NEBIVOLOL 5 MG PO SCH (09:00)
[2020-05-31] MEDS: IPRATROPIUM/ALBUTEROL SULFATE 1 PUFF INHALER INH SCH ×4 (09:22→20:12)
[2020-05-31] MEDS: PATIENTS OWN MEDICATION 1 DOSE MISCELL PO SCH (09:24)
[2020-05-31] MEDS: REMDESIVIR 100 MG in 0.9 % SODIUM CHLORIDE 250 ML IV SCH (10:10)
--- NOTE | 2020-05-31 11:25 | Discharge Summary ---
Discharge Provider Provider Patient information: Note initiated : 05/31/20 at 11:23 am Service Date, if different from initiated Date: [] Patient: Fiona Chinchilla 54 y/o F admitted on 05/29/20 for dizziness, flu. Chief Complaint: [] Date of admission: 05/29/20 22:45 Discharge date: 06/01/20 Primary care physician: Savana Lam Consults: 05/29/20 Consult to Physician [CONS] Stat Comment: Consulting Provider: Enoch Pabon Reason For Exam: Physician to Consult Discharge Meds Discharge Medications Home Medications Basaglar KwikPen U-100 Insulin 65 unit SUBCUT HS 05/29/20 [History Confirmed 05/29/20 Last Taken 05/28/20 23:00] Bystolic 5 mg PO DAILY 05/29/20 [History Confirmed 05/29/20 Last Taken 05/29/20 10:00] albuterol sulfate [Ventolin HFA] 2 inh INHALATION PRN PRN 05/29/20 [History Confirmed 05/29/20 Last Taken 05/29/20 15:00] buspirone 10 mg PO DAILY 05/29/20 [History Confirmed 05/29/20 Last Taken 05/29/20 10:00] escitalopram oxalate 10 mg PO DAILY 05/29/20 [History Confirmed 05/29/20 Last Taken 05/29/20 10:00] insulin lispro [Humalog KwikPen Insulin] 50 unit SUBCUT PC 05/29/20 [History Confirmed 05/29/20 Last Taken 05/29/20 10:00] losartan 100 mg PO DAILY 05/29/20 [History Confirmed 05/29/20 Last Taken 05/29/20 10:00] benzonatate 200 mg PO TIDP PRN #20 cap 05/31/20 [Rx Last Taken Unknown] amlodipine [Norvasc] 5 mg PO QDAY #30 tab 06/01/20 [Rx Last Taken Unknown] COURSE Hospital Course Hospital course: History of present illness: Ms. Chinchilla is a 54 year old F Presents to the ED with worsening shortness of breath and cough. Patient lives with her mother was diagnosed with COVID-19 on the . Patient started developing symptoms on the fourth described as myalgias weakness nausea no vomiting diarrhea shortness of breath cough, fatigue. His symptoms continue to worsen especially her cough. Her cough is dry but her shortness of breath worsened as her cough worsened point where she was so short of breath she felt he needed to come in the ED. In the ED she was saturating at 88% on room air. She was given a breathing treatment and later on ambulated on room air but dropped to the mid 80s. Patient with good sats on 2 L oxygen. Managing with infiltrates bilaterally. He has a history of hypertension diabetes asthma, and obesity. Mother is convalescing at home. Lab abnormalities include mild transaminitis. Unremarkable troponin. Mildly elevated C-reactive protein. Mildly elevated d-dimer. Low procalcitonin. Mild thrombocytopenia 05/30 Patient feeling better today. Coughing less and shortness of breath improving. Still on 2 L nasal cannula and will decrease to 1 L and see if she does. 05/31 Feeling better today. Minimal cough. Breathing better. Hyperglycemia over night and was placed on insulin drip. Clarify at home insulin and she does take 50 units 3 times a day with meals as well 65 units long-acting. 06/01 Patient did 30 minutes of prone positioning last night. Cannot do anymore because she feels claustrophobic. was only been on very minimal oxygen since yesterday. Taken off oxygen this morning. Patient ambulating in her room on room air. Patient is been bradycardic and is on 2 blood pressure medications. Still needs blood pressure adjustment for high blood pressure. Will discontinue her Coreg completely and start Norvasc A: *COVID-19 highly suspected: in-house family member positive on , pt symptoms started 05/27. -viral prodrome including GI symptoms -b/l infiltrates on imaging, procalcitonin low and no leukocytosis, *Acute hypoxic respiratory failure: / above *HTN: On BB/ARB *DM with Hyperglycemia: *Obesity: *h/o Asthma: *Generalized anxiety disorder: *mild hyperkalemia: *Bradycardia: on two BB's Discharge diagnosis: Acute hypoxic respite failure, highly suspected COVID Secondary discharge diagnosis: Hypertension diabetes obesity asthma generalized anxiety bradycardia Time Spent with Patient Time attestation: Total time spent providing and/or coordinating discharge servi cristian: Time spent: Greater than 30 minutes EXAM Constitutional Vitals: Temp Pulse Resp BP Pulse Ox 98.4 F 44 L 20 130/67 92 05/31/20 04:07 05/31/20 08:02 05/31/20 08:02 05/31/20 08:02 05/31/20 08:02 Discharge Data Data Completed and Pending Labs on day of discharge: Labs from last 24 hours 05/31/20 05/31/20 05/31/20 05:15 05:15 05:15 WBC 7.6 RBC 4.09 Hgb 12.7 Hct 37.9 MCV 92.7 MCH 31.1 MCHC 33.5 RDW 13.2 Plt Count 158 MPV 11.6 H Total Counted 100 Seg Neutrophils % 60 Band Neutrophils % 3 Lymphocytes % 24 Monocytes % (Manual) 10 Eosinophils % (Manual) 1 Metamyelocytes % Myelocytes % Reactive Lymphocytes 2 Platelet Estimate Normal RBC Morphology Normal Sodium 140 Potassium 4.5 Chloride 104 Carbon Dioxide 21 L Anion Gap 15.0 BUN 23 H Creatinine 1.0 GFR Calculation 63 Glucose 318 H Uric Acid 6.9 Calcium 9.6 Phosphorus 1.9 L Magnesium 2.2 Ferritin 543.4 H Total Bilirubin 0.6 Direct Bilirubin < 0.2 GGT 281 H AST 45 H ALT 42 H Alkaline Phosphatase 128 H Lactate Dehydrogenase 261 H Total Creatine Kinase Total Protein 6.5 Albumin 3.6 Globulin 2.9 Albumin/Globulin Ratio 1.2 Triglycerides 172 H 05/31/20 05/30/20 05:10 05:38 WBC RBC Hgb Hct MCV MCH MCHC RDW Plt Count MPV Total Counted 100 Seg Neutrophils % 65 Band Neutrophils % 2 Lymphocytes % 24 Monocytes % (Manual) 5 Eosinophils % (Manual) Metamyelocytes % 2 H Myelocytes % 2 H Reactive Lymphocytes Platelet Estimate Decreased RBC Morphology Normal Sodium Potassium Chloride Carbon Dioxide Anion Gap BUN Creatinine GFR Calculation Glucose Uric Acid Calcium Phosphorus Magnesium Ferritin Total Bilirubin Direct Bilirubin GGT AST ALT Alkaline Phosphatase Lactate Dehydrogenase Total Creatine Kinase 156 Total Protein Albumin Globulin Albumin/Globulin Ratio Triglycerides Discharge Plan Patient/Caregiver Discharge Instructions Activity: increase activity as tolerated Diet: Consistent Carbohydrate Activity Restrictions/Additional Instructions: Monitor blood pressure and pulse twice daily and bring log to PCP. Prescriptions: New benzonatate 100 mg Capsule 200 mg PO TIDP PRN (Reason: Cough) Qty: 20 RF: 0 amlodipine [Norvasc] 5 mg tablet 5 mg PO QDAY Qty: 30 RF: 0 Continued buspirone 10 mg tablet 10 mg PO DAILY RF: 0 insulin lispro [Humalog KwikPen Insulin] 100 unit/mL insulin pen 50 unit SUBCUT PC RF: 0 escitalopram oxalate 10 mg tablet 10 mg PO DAILY RF: 0 Basaglar KwikPen U-100 Insulin 100 unit/mL (3 mL) insulin pen 65 unit SUBCUT HS RF: 0 Bystolic 5 mg tablet 5 mg PO DAILY RF: 0 albuterol sulfate [Ventolin HFA] 90 mcg/actuation HFA aerosol inhaler 2 inh INHALATION PRN PRN (Reason: Shortness Of Breath) RF: 0 losartan 100 mg tablet 100 mg PO DAILY RF: 0 Discontinued carvedilol 6.25 MG tablet 6.25 mg PO BID Qty: 60 RF: 0 Follow Up Plan Follow up with: Savana Lam ARNP [Primary Care Provider] - Patient Disposition: Home, Self-Care Prognosis: Fair Discharge Orders: Discharge Order (Routine); Ordered 06/01/20 Ordered By: Enoch Pabon [facility] VTE Deep Vein Thrombosis/Pulmonary Embolism Present on Admission: No
[2020-05-31] MEDS ORDERED: INSULIN LISPRO 1 UNIT/0.01 ML UNIT SQ ONE ×2 (11:34→12:41)
[2020-05-31] MEDS ORDERED: INSULIN GLARGINE, HUMAN 1 UNIT/0.01 ML SQ SCH (21:00)
[2020-06-01] MEDS: INSULIN LISPRO 1 UNIT/0.01 ML UNIT SQ SCH ×5 (00:06→11:28)
[2020-06-01] MEDS: 0.9 % SODIUM CHLORIDE 10 ML SYRINGE IV SCH (04:15)
[2020-06-01] MEDS: CARVEDILOL 3.125 MG TABLET PO SCH (07:16)
[2020-06-01] MEDS ORDERED: INSULIN GLARGINE, HUMAN 1 UNIT/0.01 ML SQ ONE (07:36)
[2020-06-01] MEDS: ESCITALOPRAM 10 MG TABLET PO SCH (09:12)
[2020-06-01] MEDS: ENOXAPARIN 40 MG/0.4 ML SYRINGE SQ SCH (09:12)
[2020-06-01] MEDS: DEXAMETHASONE 4 MG TABLET PO SCH (09:13)
[2020-06-01] MEDS: IPRATROPIUM/ALBUTEROL SULFATE 1 PUFF INHALER INH SCH (09:13)
[2020-06-01] MEDS: busPIRone 5 MG TABLET PO SCH (09:13)
[2020-06-01] MEDS: PATIENTS OWN MEDICATION 1 DOSE MISCELL PO SCH (09:17)
[2020-06-01] MEDS ORDERED: amLODIPine 5 MG TABLET PO ONE (10:32)
[2020-06-01] MEDS ORDERED: LOSARTAN 50 MG TABLET PO ONE (10:35)
[2020-06-01] MEDS: REMDESIVIR 100 MG in 0.9 % SODIUM CHLORIDE 250 ML IV SCH (11:25)
== END 2020-06-01 13:42 | disposition home or self-care (01) | DRG 177 ==
LOC: ED 17:46 → MEDSUR 22:45
PROVIDERS: ADMIT Internal Medicine; ATTEND Internal Medicine